=== PATIENT | female | born 1995 | race African-American/Black ===

== ENCOUNTER 2016-07-17 18:09 | Emergency (ER) | payer BC, MEDICAID ==
[2016-07-17 18:59] LABS: URINE BILIRUBIN NEGATIVE (NEGATIVE); URINE BLOOD NEGATIVE (NEGATIVE); URINE COLOR YELLOW; URINE GLUCOSE (UA) NEGATIVE (NEGATIVE); URINE KETONE NEGATIVE (NEGATIVE); URINE PH 7.5; URINE PROTEIN NEGATIVE (NEGATIVE); URINE UROBILINOGEN 0.2 E.U./dL (0.2 - 1.0)
[2016-07-17 19:00] LABS: URINE BACTERIA NONE SEEN /hpf (NONE SEEN); URINE EPITHELIAL CELLS NONE SEEN /lpf (FEW); URINE RBC NONE SEEN /hpf (0-5); URINE WBC NONE SEEN /hpf (0-5)
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
--- NOTE | 2016-07-18 10:31 | Diagnostic Imaging Report ---
CT abdomen and pelvis without intravenous contrast Indication: Abdominal pain Comparison: None, Technique: Axial images were obtained from the lung bases to the bilateral proximal femurs without IV contrast. Coronal reconstructions were made. total DLP: 384, CTDI7.6 FINDINGS: Exam is limited due to lack of IV contrast. No evidence of focal hepatic or splenic lesions. Limited evaluation of the pancreas demonstrates no focal lesions. No focal adrenal lesions. No evidence of hydronephrosis or nephrolithiasis. Mildly distended urinary bladder is noted. There is copious amount of stool throughout the colon. Small fat-containing umbilical hernia is noted. No evidence of acute appendicitis. There is indeterminate abnormal fluid density seen along the right retroperitoneum best seen on coronal image 37, series 6). The osseous structures demonstrate no acute abnormalities. IMPRESSION: Limited exam due to lack of IV contrast. There is indeterminate fluid density area seen along the right retroperitoneum. Findings are nonspecific and may be postinfectious/postinflammatory or posttraumatic. Recommend correlation with clinical findings and short-term follow-up with IV contrast. Copious amount of stool throughout the colon. No evidence of free air.
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
== END 2016-07-17 20:20 | disposition home or self-care (01) ==
LOC: ER 18:09
DX: S20.211A Contusion of right front wall of thorax, initial encounter (principal); V89.2XXA Person injured in unspecified motor-vehicle accident, traffic, initial encounter; W22.19XA Striking against or struck by other automobile airbag, initial encounter; Y93.89 Activity, other specified; Y92.488 Other paved roadways as the place of occurrence of the external cause; Y99.8 Other external cause status
CPT/HCPCS: 70450-TC; 71250-TC; 72125-TC; 81001-TC; 81025-TC